=== PATIENT | female | born 2000 | race Caucasian/White ===

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

== ENCOUNTER 2022-03-31 15:14 | Outpatient (REF) | payer OTHER, SELFPAY ==
[2022-04-02 11:02] LABS: COVID-19 RT-PCR UVMMC Result Negative (Negative)
== END 2022-03-31 15:15 | disposition home or self-care (01) ==
LOC: LBN 15:14
PROVIDERS: PCP Nurse Practitioner Pediatrics; Referring Provider Pediatrics; Visit Provider Pediatrics
DX: Z20.822 Contact with and (suspected) exposure to COVID-19 (principal)
CPT/HCPCS: U0003

== ENCOUNTER 2023-02-08 10:34 | Outpatient (REF) | payer OTHER, SELFPAY ==
[2023-02-09 14:13] LABS: Chlamydia Result Negative (Negative); GC Result Negative (Negative)
== END 2023-02-08 10:35 | disposition home or self-care (01) ==
LOC: LBN 10:34
PROVIDERS: Visit Provider Nurse Practitioner Women's Health
DX: Z11.3 Encounter for screening for infections with a predominantly sexual mode of transmission (principal)
CPT/HCPCS: 87491; 87591

== ENCOUNTER 2023-02-23 20:30 | Emergency (ER) | payer OTHER, SELFPAY ==
[2023-02-23 20:36] VITALS: BP 110/88; PULSE 114; RESP 18; O2SAT 100
[2023-02-23] MEDS: Normal Saline 1,000 ML 1000 ML IV (21:11)
[2023-02-23] MEDS: Droperidol 5 MG/2 ML VIAL 2.5 MG IVP (21:12)
[2023-02-23 21:17] LABS: Abs Immature Grans 0.03 10^3/uL (0.0-0.06); Absolute Basophil Count 0.01 10^3/uL (0.0-0.2); Absolute Eosinophil Count 0.02 10^3/uL (0.0-0.7); Absolute Lymphocyte Count 0.49 10^3/uL (1.2-3.4); Absolute Monocyte Count 0.37 10^3/uL (0.1-0.8); Absolute Neutrophil Count 5.49 10^3/uL (1.2-6.7); Basophils % 0.2; Eosinophils % 0.3; HCT 41.9 % (36.0-46.0); HGB 14.3 g/dL (11.2-15.7); Immature Grans % 0.5; Lymphocytes % 7.6; MCH 28.8 pg (27.0-33.0); MCHC 34.1 % (32.0-36.0); MCV 84 fL (80-95); MPV 9.4 fL (8.0-11.0); Monocytes % 5.8; Neutrophils % 85.6; Platelet Count 268 10^3/uL (130-400); RBC 4.97 10^6/uL (3.93-5.22); RDW 12.4 % (11.7-14.6); WBC 6.41 10^3/uL (4.4-10.8)
[2023-02-23 21:31] LABS: ALT 15 U/L (14-59); AST 16 U/L (15-37); Albumin 3.5 g/dL (3.4-5.0); Alkaline Phosphatase 53 U/L (46-116); BUN 13 mg/dL (7-18); Bilirubin, Total 0.7 mg/dL (0.2-1.0); Calcium 8.8 mg/dL (8.5-10.1); Chloride 103 mmol/L (98-107); Estimated GFR 82.71 (mL/min/1.73m2); Glucose 105 mg/dL (74-106); Magnesium 1.4 mg/dL (1.8-2.4); Potassium 3.3 mmol/L (3.5-5.1); Sodium 139 mmol/L (136-145); Total Protein 7.8 g/dL (6.4-8.2)
[2023-02-23 21:40] LABS: Bilirubin Negative (Negative); Blood Trace-intact (Negative); Clarity Clear (Clear); Glucose Negative (Negative); Ketones 80 mg/dL (Negative); Leukocyte Esterase Trace (Negative); Nitrite Negative (Negative); Specific Gravity 1.015 (1.005-1.025)
--- NOTE | 2023-02-23 21:52 | W.ED.GENAD ---
Discharge Plan Disposition Patient Disposition: Home Condition: Stable Discharge Details Clinical Impression: Gastroenteritis, Hypomagnesemia, Hypokalemia, UTI (urinary tract infection) ED Provider: Tianna Beauchamp Home Meds and New Rx's Prescriptions: New Promethazine, 3 Tabs/Btl [Phenergan, 3 Tabs/Btl] 25 mg PO DISPENSE Qty: 0 0RF cephalexin 500 mg capsule 500 mg PO BID Qty: 4 0RF Continued norgestimate-ethinyl estradiol [Sprintec (28)] 0.25-35 mg-mcg tablet 1 tab PO DAILY Qty: 84 5RF multivitamin Tablet 1 tab PO DAILY Discharge Instructions Instructions: Potassium Content of Foods List (ED), Gastroenteritis (ED) Additional Instructions: Your potassium and magnesium were slightly low and this is due to GI losses from nausea and vomiting. We replaced your magnesium with IV replacement and you can add potassium by eating foods high in potassium such as bananas kiwi potatoes (see attached list). Your urine culture is pending demonstrated IV ceftriaxone and will be given 2 days of cephalexin today to treat suspected urinary tract infection. increase oral fluids, taking 1/2 strength gatorade or other electrolyte replacement with water, drinking at least 6-8 glasses or more daily. ok to use over the counter anti-diarrheal medicine for symptoms Referrals: Unknown,Unknown [STAFF PHYSICIAN] - (Follow-up with primary care provider or return here sooner for new or worsening symptoms) Discharge Data Discharge Date/Time-TO BE ENTERED AT DEPARTURE: 02/24/23 00:06 Medical Decision Making this is a 22 year old female with no significant past medical history, exposed to GI illness and now with similar symptoms, most consistent with gastroenteritis and now some anxiety. IV established given 1 L of normal saline with droperidol 2.5 mg IVP for symptoms. labs reviewed, will replete magnesium with 2 gm IVPB, due to gi losses. symptoms improved and will dispense phenergan 25 mg po for home use. Medical Records Medical records reviewed: Yes I reviewed the patient's medical records. Lab Data Lab results reviewed: Yes I reviewed the patient's lab results. Lab results narrative: Laboratory Results - last 24 hr 02/23/23 02/23/23 02/23/23 21:05 21:05 21:28 WBC 6.41 RBC 4.97 Hgb 14.3 Hct 41.9 MCV 84 MCH 28.8 MCHC 34.1 RDW 12.4 Plt Count 268 MPV 9.4 Immature Gran % 0.5 Neutrophils % 85.6 Lymphocytes % 7.6 Monocytes % 5.8 Eosinophils % 0.3 Basophils % 0.2 Nucleated RBC % 0.0 Absolute Neutrophils 5.49 Absolute Lymphocytes 0.49 L Absolute Monocytes 0.37 Absolute Eosinophils 0.02 Absolute Basophils 0.01 Sodium 139 Potassium 3.3 L Chloride 103 Carbon Dioxide 23.0 Anion Gap 13.0 H BUN 13 Creatinine 1.0 Est GFR (CKD-EPI 2020) 82.71 Glucose 105 Calcium 8.8 Magnesium 1.4 L Total Bilirubin 0.7 AST 16 ALT 15 Alkaline Phosphatase 53 Total Protein 7.8 Albumin 3.5 Urine Color Yellow Urine Clarity Clear Urine pH 6.0 Ur Specific Foss 1.015 Urine Protein Trace H Urine Ketones 80 H Urine Blood Trace-intact H Urine Nitrite Negative Urine Bilirubin Negative Urine Urobilinogen 1.0 H Ur Leukocyte Esterase Trace H Urine RBC 0-2 Urine WBC 0-2 Ur Epithelial Cells Few Urine Crystals Negative Urine Bacteria Moderate Urine Casts Negative Urine Mucus Negative Ur Culture Indicated? Yes Urine Glucose Negative HPI General Mode of arrival: ambulatory. Date/Time Provider Initiated Documentation: 02/23/23 20:54. Limitations to Documentation: no limitations. Information obtained by: patient. HPI Narrative: This is a 22-year-old female with no significant past medical history who presents to the emergency department after a 1 day history of nausea vomiting and diarrhea. The close contacts with similar symptoms were. She denies any bloody vomit or diarrhea. She states she started really not feeling well this evening and started panicking developing numbness tingling hands and feet. Related Data Home Medications Medication Instructions Recorded Confirmed multivitamin 1 tab PO DAILY 09/12/18 03/31/22 norgestimate 0.25 mg-ethinyl 1 tab PO DAILY #84 tabs 12/03/22 estradiol 35 mcg tablet (Sprintec (28)) PROMETHAZINE, 3 tabs/btl 25 mg PO DISPENSE ##0 02/23/23 [Phenergan, 3 tabs/btl] cephalexin 500 mg capsule 500 mg PO BID #4 caps 02/23/23 Previous Rx's Medication Instructions Recorded norgestimate 0.25 mg-ethinyl 1 tab PO DAILY #84 tabs 12/03/22 estradiol 35 mcg tablet (Sprintec (28)) PROMETHAZINE, 3 tabs/btl 25 mg PO DISPENSE ##0 02/23/23 [Phenergan, 3 tabs/btl] cephalexin 500 mg capsule 500 mg PO BID #4 caps 02/23/23 Allergies Allergy/AdvReac Type Severity Reaction Status Date / Time amoxicillin Allergy Mild Hives Verified 02/08/23 09:41 Sulfa (Sulfonamide Allergy Mild hives, rash Verified 02/08/23 09:41 Antibiotics) latex Allergy Unknown family hx Verified 02/08/23 09:41 General Stated Complaint: Anxiety THOMAS: 3 Review of Systems All systems reviewed & are unremarkable except as noted in HPI and below PFSH All Active Problems (Updated 02/23/23 @ 22:43 by Tianna Beauchamp NP) Gastroenteritis (Acute) Hypomagnesemia (Acute) Hypokalemia (Acute) UTI (urinary tract infection) (Acute) Plantar wart (Acute) Oral contraceptive use (Acute) Well adolescent visit (Acute) Latex sensitivity (Acute) Eczema (Acute) Anxiety (Acute 01/12/17) Medical History 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 Other No problems noted. Father Anxiety Social History Smoking/Tobacco Use Status: Never Smoking risk assessment performed?: Yes Alcohol Intake: current Alcohol Intake frequency: holidays/special occasions only Alcohol type: beer Drug use: Never Substance use type: does not use Household members: family Education Level: college Details: [employer]--First Year student (Fall 2020) Pets and animals: Yes (2 cats, 2 dogs) Pets and animals: cat(s) and dog(s) Do you feel safe at home: Yes Do you feel safe in your relationship?: Yes Additional Social history: 07/17/2020. Grandfather recently from stomach cancer. His dad had a significant impact on the patient. Boyfriend is Kathy x1 year. Student at [employer]. Female Reproductive History Menstrual Age of Menarche: 13 control method: pills History History 0 Para Hx # Term Pregnancies Multiple births Hx # Pregnancies Ectopic pregnancies AB induced Hx Number of Living Children AB spontaneous Exam Const General: cooperative, comfortable and other (flushed cheeks) Nutritional Appearance: average body habitus Orientation: alert, awake and oriented x3 HENMT Head: normal to inspection, normocephalic and atraumatic Mouth: oral mucosae normal Resp Effort & Inspection: normal respiratory effort Auscultation: clear to auscultation bilaterally Cardio Rate: regular rate Rhythm: regular rhythm GI Inspection: normal to inspection Palpation: soft, not firm, not rigid and nontender Auscultation: normal bowel sounds Skin General skin exam: no rashes or lesions noted Neuro General: patient alert, patient awake and patient oriented x3 Extrem General: normal to inspection and full ROM Course Vital Signs Vital signs: Vital Signs Pulse 114 H 02/23/23 20:36 Respiratory Rate 18 02/23/23 20:36 Blood Pressure 110/88 02/23/23 20:36 Pulse Oximetry 100 02/23/23 20:36 Pulse 114 H 02/23/23 20:36 Respiratory Rate 18 02/23/23 20:36 Blood Pressure 110/88 02/23/23 20:36 Pulse Oximetry 100 02/23/23 20:36 Oxygen Delivery Method Room Air 02/23/23 20:36 Oxygen Flow Rate 0 02/23/23 20:36 Lab/Test Results Lab/Test Results: Laboratory Tests Range/Units 02/23/23 02/23/23 02/23/23 21:05 21:05 21:28 WBC (4.4-10.8) 10^3/uL 6.41 RBC (3.93-5.22) 10^6/uL 4.97 Hgb (11.2-15.7) g/dL 14.3 Hct (36.0-46.0) % 41.9 MCV (80-95) fL 84 MCH (27.0-33.0) pg 28.8 MCHC (32.0-36.0) % 34.1 RDW (11.7-14.6) % 12.4 Plt Count (130-400) 10^3/uL 268 MPV (8.0-11.0) fL 9.4 Immature Gran % 0.5 Neutrophils % 85.6 Lymphocytes % 7.6 Monocytes % 5.8 Eosinophils % 0.3 Basophils % 0.2 Nucleated RBC % (0.0-0.3) % 0.0 Absolute Neutrophils (1.2-6.7) 10^3/uL 5.49 Absolute Lymphocytes (1.2-3.4) 10^3/uL 0.49 L Absolute Monocytes (0.1-0.8) 10^3/uL 0.37 Absolute Eosinophils (0.0-0.7) 10^3/uL 0.02 Absolute Basophils (0.0-0.2) 10^3/uL 0.01 Sodium (136-145) mmol/L 139 Potassium (3.5-5.1) mmol/L 3.3 L Chloride (98-107) mmol/L 103 Carbon Dioxide (21.0-32.0) mmol/L 23.0 Anion Gap (3-11) mmol/L 13.0 H BUN (7-18) mg/dL 13 Creatinine (0.55-1.02) mg/dL 1.0 Est GFR (CKD-EPI 2020) (mL/min/1.73m2) 82.71 Glucose (74-106) mg/dL 105 Calcium (8.5-10.1) mg/dL 8.8 Magnesium (1.8-2.4) mg/dL 1.4 L Total Bilirubin (0.2-1.0) mg/dL 0.7 AST (15-37) U/L 16 ALT (14-59) U/L 15 Alkaline Phosphatase (46-116) U/L 53 Total Protein (6.4-8.2) g/dL 7.8 Albumin (3.4-5.0) g/dL 3.5 Urine Color (Yellow) Yellow Urine Clarity (Clear) Clear Urine pH (5-8) 6.0 Ur Specific Foss (1.005-1.025) 1.015 Urine Protein (Negative) mg/dL Trace H Urine Ketones (Negative) mg/dL 80 H Urine Blood (Negative) Trace-intact H Urine Nitrite (Negative) Negative Urine Bilirubin (Negative) Negative Urine Urobilinogen (Up to 0.2) mg/dL 1.0 H Ur Leukocyte Esterase (Negative) Trace H Urine Glucose (Negative) mg/dL Negative POC- Test(urine) Negative
[2023-02-23 21:54] LABS: Bacteria Moderate HPF (Negative); C & S Indicated? Yes; Casts Negative LPF (Negative); Crystals Negative HPF (Negative); Epithelial Cells Few HPF (Negative); Mucus Negative (Negative); RBC 0-2 HPF (0-2); WBC 0-2 HPF (0-5)
[2023-02-23] MEDS: Ketorolac 15 MG/ML VIAL IVP (22:00)
[2023-02-23] MEDS: MAGNESIUM SULFATE 2 GM/50 ML BAG IVPB (22:00)
[2023-02-23 22:35] VITALS: BP 117/71; PULSE 72; RESP 18; O2SAT 99
[2023-02-23] MEDS: cefTRIAXone 1 GM/50 ML BAG IVPB (23:52)
== END 2023-02-24 00:06 | disposition home or self-care (01) ==
PROVIDERS: Emergency Provider Nurse Practitioner Acute Care
DX: K52.9 Noninfective gastroenteritis and colitis, unspecified (principal); E87.6 Hypokalemia; E83.42 Hypomagnesemia; N39.0 Urinary tract infection, site not specified; R19.7 Diarrhea, unspecified; F41.9 Anxiety disorder, unspecified
CPT/HCPCS: 80053; 81025; 96361; 96365; 96366; 96375; 99284; 81003; 81015; 83735; 85025; 87086; J0696; J1790; J1885

== ENCOUNTER 2023-11-09 18:18 | Outpatient (REF) | payer OTHER, SELFPAY ==
[2023-11-09 17:05] LABS: HCT 43.3 % (36.0-46.0); HGB 13.8 g/dL (11.2-15.7); MCH 27.8 pg (27.0-33.0); MCHC 31.9 % (32.0-36.0); MCV 87 fL (80-95); MPV 10.1 fL (8.0-11.0); Platelet Count 344 10^3/uL (130-400); RBC 4.97 10^6/uL (3.93-5.22); RDW 12.3 % (11.7-14.6)
[2023-11-09 17:17] LABS: ALT 19 U/L (14-59); AST 19 U/L (15-37); Albumin 3.6 g/dL (3.4-5.0); Alkaline Phosphatase 76 U/L (46-116); Anion Gap 9.9 mmol/L (3-11); BUN 14 mg/dL (7-18); Bilirubin, Total 0.3 mg/dL (0.2-1.0); CO2 27.1 mmol/L (21.0-32.0); CREATININE 0.8 mg/dL (0.55-1.02); Calcium 9.2 mg/dL (8.5-10.1); Chloride 102 mmol/L (98-107); Estimated GFR 107.44 (mL/min/1.73m2); Glucose 87 mg/dL (74-106); Lipase 40 U/L (16-77); Potassium 4.3 mmol/L (3.5-5.1); Sodium 139 mmol/L (136-145); Total Protein 7.4 g/dL (6.4-8.2)
== END 2023-11-09 18:19 | disposition home or self-care (01) ==
LOC: LBN 18:18
PROVIDERS: Visit Provider Nurse Practitioner Family
DX: R10.11 Right upper quadrant pain (principal)
CPT/HCPCS: 80053; 83690; 85027

== ENCOUNTER → 2023-12-08 04:06 | Outpatient (CLI) | payer OTHER, SELFPAY ==
--- NOTE | 2023-12-08 | DI.NM_ITS ---
Exam(s) NM HEPATOBILIARY CCK GRP EXAM: NM HEPATOBILIARY CCK GRP CLINICAL HISTORY: R10.9 Unspecified abdominal pain. TECHNIQUE: Injected dose: 5 mCi Tc-99 mebrofenin Initial dynamic images: 60 minutes Post-Gallbladder fillin.8 mcg CCK intravenously. Addition images: 20 minute dynamic during CCK administration. COMPARISON: US US ABDOMEN LIMITED from 11/11/2023 FINDINGS: Normal hepatic transit time. There is excretion into the small bowel. Prompt excretion into the gallbladder. The gallbladder ejection fraction is 64 percent which is with in normal limits. IMPRESSION: 1. Unremarkable examination with a normal gallbladder ejection fraction. SNM guidelines: Gallbladder visualization should be present by 3 hours. Delayed [id number] puga sit beyond 60 min raises the suspicion for partial common bile duct (CBD) obstruction. Gallbladder ejection fraction <35% has a good correlation with acalculous disease (i.e., chronic acal culous cholecystitis, cystic duct syndrome, sphincter of Oddi disease).
== END ==
PROVIDERS: PCP Family Medicine; Visit Provider Family Medicine
DX: R10.9 Unspecified abdominal pain (principal)
CPT/HCPCS: 78227

== ENCOUNTER 2024-02-17 14:09 | Outpatient (REF) | payer OTHER, SELFPAY ==
--- NOTE | 2024-02-17 14:00 | PAPFT_PTH ---
PATIENT: Marisa Greer LOC: [facility] U#:[id number] AGE/SX: 23/F ROOM: RE02/17/[address]: Nicole Craig MD : 2000 BED: DIS: 02/17/2024 SPEC #: [id number] RECD: 02/17/24 18:14 STATUS: FARZANEH REQ #: [id number] SYBIL: 02/17/24 14:[address]: Nicole Craig DEPT: [facility] Cytology RECD BY: Reva Torres ENTERED: 02/17/24 18:14 SP TYPE: PAPFT OTHR DR: Chase Ovalles Tissues: 1 - CX/ENDOCX FOR PAP SMEARS Procedures: PAP THIN PREP/[facility] Screening Comments: [id number] (CHLAMYDIA/GC)
[2024-02-18 15:14] LABS: Chlamydia Result Negative (Negative); GC Result Negative (Negative)
== END 2024-02-17 14:10 | disposition home or self-care (01) ==
LOC: LBN 14:09
PROVIDERS: PCP Family Medicine; Visit Provider Obstetrics & Gynecology
DX: Z11.51 Encounter for screening for human papillomavirus (HPV) (principal); Z01.419 Encounter for gynecological examination (general) (routine) without abnormal findings
CPT/HCPCS: 87491; 87591; 88142